=== PATIENT | female | born 1970 | race Caucasian/White ===

== ENCOUNTER → 2016-08-31 | Outpatient (CLI) | payer OTHER ==
[~2016-08-31] MED LIST: AZIT250T5 PO; DICY20TA57 PO; HYDR-3583 PO; LISI10TA2 PO; LVT.1T PO; METR500T PO; NCT14P TD; NCT21TD TD; NCT7P TD; PRD20T PO; RABE20TA PO
--- NOTE | 2016-09-02 17:37 | Diagnostic Imaging Report ---
Bilateral screening mammogram The current study was also evaluated with a Computer Aided Detection (CAD) system. Indication: Screening. No current complaints stated on the questionnaire. COMPARISON: 06/24/15. Findings: The breasts are composed of a scattered fibroglandular densities. There are occasional benign-appearing calcifications. Allowing for technique and positional differences, no suspicious change is seen. IMPRESSION: No significant change. ACR BI-RADS Category 2: Benign findings. Result letter will be mailed to the patient. Note: At least 10% of breast cancer is not imaged by mammography. Dictated by: Dictated on workstation # [id number]
== END ==
LOC: RAD 14:27
PROVIDERS: ATTEND Nurse Practitioner Community Health
DX: Z12.31 Encounter for screening mammogram for malignant neoplasm of breast (principal)
CPT/HCPCS: 77067

== ENCOUNTER 2016-09-19 12:58 | Emergency (ER) | payer SELFPAY ==
[~2016-09-19] VITALS: Ht 165.1 cm; Wt 93.0 kg
[2016-09-19 13:11] LABS: BILIRUBIN,URINE 2+ (NEGATIVE); KETONES,URINE NEGATIVE (NEGATIVE); LEUKOCYTE ESTERASE ,URINE 3+ (NEGATIVE); NITRITE,URINE POSITIVE (NEGATIVE); PH,URINE 5 (5-9); PROTEIN,URINE 2+ (NEGATIVE); UROBILINOGEN,URINE 4 MG/DL (NORMAL)
[2016-09-19 13:19] LABS: WBC,URINE 50-100 /HPF
[2016-09-19 13:46] LABS: BASOPHILS % (AUTO) 0 % (0-10); EOSINOPHILS # (AUTO) 0.2 10^3/uL (0.0-0.3); EOSINOPHILS % (AUTO) 1 % (0-10); LYMPHOCYTES # (AUTO) 3.5 X 10^3 (1.0-4.0); LYMPHOCYTES % (AUTO) 17 % (12-44); MEAN CORPUSCULAR HEMOGLOBIN 29 PG (25-34); MEAN CORPUSCULAR HGB CONC 33 G/DL (32-36); MEAN CORPUSCULAR VOLUME 86 FL (80-99); MEAN PLATELET VOLUME 10.8 FL (7.4-10.4); MONOCYTES # (AUTO) 1.9 X 10^3 (0.0-1.0); MONOCYTES % (AUTO) 9 % (0-12); NEUTROPHILS # (AUTO) 15.8 X 10^3 (1.8-7.8); NEUTROPHILS % (AUTO) 74 % (42-75); PLATELET COUNT 245 10^3/uL (130-400); RED BLOOD COUNT 5.11 10^6/uL (4.35-5.85); RED CELL DISTRIBUTION WIDTH 14.3 % (10.0-14.5); WHITE BLOOD COUNT 21.4 10^3/uL (4.3-11.0)
--- NOTE | 2016-09-19 13:48 | ED Abdominal Pain ---
General Chief Complaint: Back Problems Stated Complaint: R SIDE PAIN/POSS UTI Nursing Triage Note: c/o right flank pain. Onset Tuesday which started off as dysuria. Sepsis Screen: No Definite Risk Source of Information: Patient History of Present Illness Time Seen By Provider: 13:35 Initial Comments The patient is a 45-year-old white female who presents with complaints of dysuria and right sided abdominal pain. She reports that the dysuria and some suprapubic discomfort began on 09/16 and was relatively mild. She obtained some Azo Gantrisin. This has not seemed to help. She arose this morning she had dysuria but otherwise felt rather well. She then was suddenly stricken with a right flank pain which has gotten progressively worse. Timing/Duration: 2-3 Days Severity/Quality: Moderate, Burning, Sharp, Throbbing Location: RUQ, RLQ, Suprapubic Activities at Onset: None Allergies and Home Medications Allergies Coded Allergies: No Known Drug Allergies (Unverified , 09/22/10) Home Medications Azithromycin 250 Mg Tablet, 250 MG PO UD, #6 TAKE 2 TABLETS ON DAY ONE THEN TAKE 1 TABLET DAILY FOR FOUR MORE DAYS Prescribed by: CRISTELA PRICE on 02/25/15 1216 Cefdinir 300 Mg Capsule, 300 MG PO twice a day, #14 Prescribed by: TWAN ELLISON on 09/19/16 1525 Hydrocodone Bit/Acetaminophen 1 Tab Tab, 1-2 EA PO Q4H PRN, #30 (Reported) Levothyroxine Sodium 100 Mcg Tablet, 200 MCG PO DAILY, (Reported) Lisinopril 10 Mg Tablet, 10 MG PO DAILY, (Reported) Metronidazole 500 Mg Tab, 1 EACH PO Q8H for 9 Days, (Reported) Nicotine 7 Mg Patch, 7 MG TD, (Reported) Nicotine 14 Mg Patch, 14 MG TD, (Reported) Nicotine 21 Mg Patch, 21 MG TD, (Reported) Prednisone 20 Mg Tab, 40 MG PO DAILY for 3 Days Prescribed by: CRISTELA PRICE on 02/25/15 1216 Rabeprazole Sodium 20 Mg Tablet.dr, 20 MG PO DAILY, (Reported) Review of Systems Constitutional: see HPI EENTM: No Symptoms Reported Respiratory: No Symptoms Reported Cardiovascular: No Symptoms Reported Gastrointestinal: Abdominal Pain Genitourinary: See HPI, Burning Musculoskeletal: no symptoms reported Skin: no symptoms reported Psychiatric/Neurological: No Symptoms Reported Endocrine: No Symptoms Reported Hematologic/Lymphatic: No Symptoms Reported Past Rgrdqyh-Fxqfwi-Rarscc Hx Patient Social History Alcohol Use: Denies Use Recreational Drug Use: No Smoking Status: Current Everyday Smoker Recent Foreign Travel: No Contact w/Someone Who Travel: No Recent Infectious Disease Expo: No Surgeries HX Surgeries: Yes Surgeries: Gallbladder Respiratory Hx Respiratory Disorders: No Respiratory Disorders: Chronic Bronchitis Cardiovascular Hx Cardiac Disorders: Yes Cardiac Disorders: Hypertension Neurological Hx Neurological Disorders: Yes Reproductive System : No (IUD) Hx Reproductive Disorders: Yes (PT. 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 History: IUD Genitourinary Hx Genitourinary Disorders: Yes Gastrointestinal Hx Gastrointestinal Disorders: Yes Musculoskeletal Hx Musculoskeletal Disorders: No Endocrine Hx Endocrine Disorders: Yes Endocrine Disorders: Hypothyroidsim HEENT HX ENT Disorders: No Psychosocial Hx Psychiatric Problems: No Integumentary HX Skin/Integumentary Disorder: No Blood Transfusions Hx Blood Disorders: No Family Medical History Significant Family History: No Pertinent Family Hx Physical Exam Vital Signs VS - Last 72 Hours, by Label 09/19/16 13:23 Temp 97.6 Pulse 70 Resp 16 B/P (MAP) 117/90 Capillary Refill : Less Than 3 Seconds General Appearance: moderate distress HEENT: normal ENT inspection Neck: full range of motion Respiratory: chest non-tender, lungs clear, normal breath sounds, no respiratory distress, no accessory muscle use Cardiovascular: normal peripheral pulses, regular rate, rhythm, no edema, no gallop, no JVD, no murmur Gastrointestinal: tenderness Extremities: normal inspection Neurologic/Psychiatric: sporting goods sales manager II-XII nml as tested, no motor/sensory deficits, alert, normal mood/affect, oriented x 3 Skin: normal color, warm/dry Progress/Results/Core Measures Results/Orders Lab Results Laboratory Tests Test 09/19/16 13:05 09/19/16 13:38 Range/Units Urine Color LEAH H Urine Clarity SLIGHTLY CLOUDY Urine pH 5 5-9 Urine Specific [place] 1.005 L 1.016-1.022 Urine Protein 2+ H NEGATIVE Urine Glucose (UA) NEGATIVE NEGATIVE Urine Ketones NEGATIVE NEGATIVE Urine Nitrite POSITIVE H NEGATIVE Urine Bilirubin 2+ H NEGATIVE Urine Urobilinogen 4 H NORMAL MG/DL Urine Leukocyte Esterase 3+ H NEGATIVE Urine RBC (Auto) 5+ H NEGATIVE Urine RBC NONE /HPF Urine WBC 50-100 H /HPF Urine Crystals NONE /LPF Urine Bacteria MODERATE H /HPF Urine Casts NONE /LPF Urine Mucus SMALL H /LPF Urine Culture Indicated YES White Blood Count 21.4 H 4.3-11.0 10^3/uL Red Blood Count 5.11 4.35-5.85 10^6/uL Hemoglobin 14.6 11.5-16.0 G/DL Hematocrit 44 35-52 % Mean Corpuscular Volume 86 80-99 FL Mean Corpuscular Hemoglobin 29 25-34 PG Mean Corpuscular Hemoglobin Concent 33 32-36 G/DL Red Cell Distribution Width 14.3 10.0-14.5 % Platelet Count 245 130-400 10^3/uL Mean Platelet Volume 10.8 H 7.4-10.4 FL Neutrophils (%) (Auto) 74 42-75 % Lymphocytes (%) (Auto) 17 12-44 % Monocytes (%) (Auto) 9 0-12 % Eosinophils (%) (Auto) 1 0-10 % Basophils (%) (Auto) 0 0-10 % Neutrophils # (Auto) 15.8 H 1.8-7.8 X 10^3 Lymphocytes # (Auto) 3.5 1.0-4.0 X 10^3 Monocytes # (Auto) 1.9 H 0.0-1.0 X 10^3 Eosinophils # (Auto) 0.2 0.0-0.3 10^3/uL Basophils # (Auto) 0.0 0.0-0.1 10^3/uL Neutrophils % (Manual) 98 % Lymphocytes % (Manual) 17 % Monocytes % (Manual) 11 % Band Neutrophils 4 % Blood Morphology Comment NORMAL Sodium Level 137 135-145 MMOL/L Potassium Level 3.6 3.6-5.0 MMOL/L Chloride Level 103 98-107 MMOL/L Carbon Dioxide Level 24 21-32 MMOL/L Anion Gap 10 5-14 MMOL/L Blood Urea Nitrogen 8 7-18 MG/DL Creatinine 0.84 0.60-1.30 MG/DL Estimat Glomerular Filtration Rate > 60 BUN/Creatinine Ratio 10 Glucose Level 94 70-105 MG/DL Calcium Level 9.6 8.5-10.1 MG/DL Total Bilirubin 0.8 0.1-1.0 MG/DL Aspartate Amino Transf (AST/SGOT) 12 5-34 U/L Alanine Aminotransferase (ALT/SGPT) 16 0-55 U/L Alkaline Phosphatase 52 40-136 U/L Total Protein 8.4 H 6.4-8.2 GM/DL Albumin 4.2 3.2-4.5 GM/DL My Orders Orders - TWAN ELLISON MD Cbc With Automated Diff (09/19/16 13:04) Comprehensive Metabolic Panel (09/19/16 13:04) Ua Culture If Indicated (09/19/16 13:04) Urine Culture (09/19/16 13:05) Manual Differential (09/19/16 13:38) Ct Abdomen/Pelvis W (09/19/16 14:11) Iohexol Injection (Omnipaque 350 Mg/Ml 1 (09/19/16 14:30) Ns (Ivpb) (Sodium Chloride 0.9% Ivpb Bag (09/19/16 14:30) Ns Iv 1000 Ml (Sodium Chloride 0.9%) (09/19/16 15:15) Ceftriaxone Injection (Rocephin Injectio (09/19/16 15:15) Medications Given in ED Current Medications Medications Dose Ordered Sig/Larry Route Start Time Stop Time Status Last Admin Dose Admin Iohexol 100 ml ONCE ONCE IV 09/19/16 14:30 09/19/16 14:31 DC 09/19/16 14:30 100 ML Sodium Chloride 100 ml ONCE ONCE IV 09/19/16 14:30 09/19/16 14:31 DC 09/19/16 14:30 80 ML Vital Signs/I&O Vital Sign - Last 12Hours 09/19/16 13:23 Temp 97.6 Pulse 70 Resp 16 B/P (MAP) 117/90 Blood Pressure Mean: 99 Departure Communication Progress Notes CT scan shows inflammatory changes along the course of the right ureter. This is stated to be consistent with infection or possibly recently passed stone. Impression Impression: Primary Impression: urinary tract infection Disposition: 01 HOME, SELF-CARE Condition: Stable/Unchanged Departure-Patient Inst. Decision time for Depature: 15:23 Referrals: YAMILETH ROSS DO (PCP) Primary Care Physician KRISTI PRIDE (Family) Primary Care Physician Add. Discharge Instructions: All discharge instructions reviewed with patient and/or family. Voiced understanding. Plenty of liquids. Omnicef as directed Ibuprofen 600 mg every 6 hours for pain or fever. Take your first dose of Omnicef tomorrow afternoon. Scripts Cefdinir (Cefdinir) 300 Mg Capsule 300 MG PO twice a day, #14 CAP Prov: TWAN ELLISON MD 09/19/16 TWAN ELLISON MD Sep 19, 2016 13:48
[2016-09-19 14:03] LABS: ALANINE AMINOTRANSFERASE 16 U/L (0-55); ALBUMIN 4.2 GM/DL (3.2-4.5); ANION GAP 10 MMOL/L (5-14); ASPARTATE AMINO TRANSFERASE 12 U/L (5-34); BILIRUBIN,TOTAL 0.8 MG/DL (0.1-1.0); BLOOD UREA NITROGEN 8 MG/DL (7-18); BUN/CREATININE RATIO 10; CALCIUM 9.6 MG/DL (8.5-10.1); CARBON DIOXIDE 24 MMOL/L (21-32); CHLORIDE 103 MMOL/L (98-107); CREATININE SERUM 0.84 MG/DL (0.60-1.30); GFR ESTIMATED > 60; GLUCOSE 94 MG/DL (70-105); POTASSIUM 3.6 MMOL/L (3.6-5.0); SODIUM 137 MMOL/L (135-145); TOTAL PROTEIN 8.4 GM/DL (6.4-8.2)
[2016-09-19 14:05] LABS: BAND NEUTROPHILS 4 %; LYMPHOCYTES % (MANUAL) 17 %; NEUTROPHILS % (MANUAL) 98 %
[2016-09-19] MEDS ORDERED: IOHEXOL 350 MG/ML 100 ML (OMNIPAQUE 350) VIAL IV ONE (14:30)
[2016-09-19] MEDS ORDERED: NS 100 ML (IVPB) BAG IV ONE (14:30)
--- NOTE | 2016-09-19 15:00 | Diagnostic Imaging Report ---
PROCEDURE: CT abdomen and pelvis with contrast. TECHNIQUE: Multiple contiguous axial images were obtained through the abdomen and pelvis after administration of intravenous contrast. INDICATION: Right lower quadrant pain. Urinary tract infection. Elevated white blood cell count. FINDINGS: The lung bases demonstrate no focal infiltrate or evidence of a pleural or pericardial effusion. The liver demonstrates no evidence of a focal intrahepatic abnormality. The patient is status post cholecystectomy. There is no abnormal biliary dilatation. The spleen appears normal. The pancreas is unremarkable. There is no adrenal mass. The right kidney demonstrates some hazy stranding about the right renal pelvis. There also is enhancement and stranding demonstrated along the ureter with evidence of enhancement in the right-sided urothelium. The findings are most compatible with a urinary tract infection. The left ureter is unremarkable. The enhancement of the kidney itself appears appropriate. Small and large bowel are normal in caliber without evidence of obstruction. Uncomplicated sigmoid diverticulosis is demonstrated. There is a normal appearance of the appendix. There is no free fluid, free air, or abscess. An intrauterine device is present. The urinary bladder is nondistended. No pathologically enlarged abdominal or pelvic lymph nodes demonstrated. The aorta is normal in caliber. No acute or suspicious osseous abnormality demonstrated. IMPRESSION: 1. Abnormal mildly prominent right ureter with enhancement demonstrated of the urothelium of the ureter and right renal pelvis. There is also abnormal fat stranding along the course of the ureter. There is no current radiodense stone. The findings are most suggestive of urinary tract infection. Recently passed stone could not be excluded. The left kidney and ureter are unremarkable. 2. Uncomplicated diverticulosis. There is no bowel obstruction. The appendix is normal. 3. No free air, free fluid, or abscess. 4. Status post previous cholecystectomy. Dictated by: Dictated on workstation # [id number]
[2016-09-19] MEDS ORDERED: NS IV 1000 ML 1,000 ML IV SCH (15:15)
[2016-09-19] MEDS ORDERED: cefTRIAXone INJECTION 1,000 MG in NS (IVPB) 50 ML IV ONE (15:15)
[2016-09-19] MEDS ORDERED: CEFD300C3 PO (15:25)
[2016-09-19 16:15] VITALS: BP 116/86
--- OUTSIDE RECORDS SUMMARY | 2016-09-22 13:27 | XMS REPORT ---
Author Author KRISTI PRIDE [facility] eClinicalWorks Address Unknown Phone Unavailable Care Team Providers Care Dental Cream Maker Name Role Phone KRISTI PRIDE CP Unavailable Allergies No Known Allergies Problems Problem Type Condition Code Onset Dates Condition Status Problem Lump or mass in breast N63 Active Problem Family history of diabetes mellitus Z83.3 Active Problem Low back pain M54.5 Active Problem History of chest pain Z87.898 Active Problem History of IBS Z87.19 Active Problem Acquired hypothyroidism E03.9 Active Problem Dysthymic disorder F34.1 Active Problem Depressive disorder F32.9 Active Problem Counseling on substance use and abuse Z71.89 Active Problem Generalized anxiety disorder F41.1 Active Problem Eye exam abnormal R93.8 Active Problem Anxiety F41.9 Active Problem Constipation, unspecified K59.00 Active Problem Mood swings F39 Active Problem Depression, unspecified depression type F32.9 Active Problem IUD (intrauterine device) in place Z97.5 Active Problem Acne, unspecified L70.9 Active Problem History of thyroid cancer Z85.850 Active Medications No Known Medications Results No Known Results Summary Purpose eClinicalWorks Submission
--- OUTSIDE RECORDS SUMMARY | 2016-09-22 13:27 | XMS REPORT ---
Author Author KRISTI PRIDE [facility] eClinicalWorks Address Unknown Phone Unavailable Care Team Providers Care Automatic Mounter Name Role Phone KRISTI PRIDE CP Unavailable Allergies, Adverse Reactions, Alerts Substance Reaction Event Type N.K.D.A. Info Not Available Non Drug Allergy Problems Problem Type Condition Code Onset Dates Condition Status Assessment Encounter for removal and reinsertion of intrauterine contraceptive device Z30.433 Active Assessment Presbyopia H52.4 Active Problem Wheezing 786.07 Active Assessment Acquired hypothyroidism E03.9 Active Problem Dysthymic disorder 300.4 Active Problem Screening examination for venereal disease V74.5 Active Problem Allergic rhinitis due to pollen 477.0 Active Problem Generalized anxiety disorder 300.02 Active Problem Acute upper respiratory infections of unspecified site 465.9 Active Problem Counseling on substance use and abuse V65.42 Active Problem Surveillance of previously prescribed intrauterine contraceptive device V25.42 Active Problem Routine gynecological examination V72.31 Active Problem Special screening examination, human papillomavirus [HPV] V73.81 Active Problem Acute sinusitis, unspecified 461.9 Active Problem Screening for malignant neoplasm of the cervix V76.2 Active Problem Dysmenorrhea 625.3 Active Problem Other specified menopausal and postmenopausal disorder 627.8 Active Problem Other acne 706.1 Active Problem Unspecified breast screening V76.10 Active Problem Family history of diabetes mellitus V18.0 Active Problem Unspecified infective otitis externa 380.10 Active Problem Lump or mass in breast 611.72 Active Problem Lumbago 724.2 Active Problem Depressive disorder, not elsewhere classified 311 Active Problem Other malaise and fatigue 780.79 Active Problem Anxiety state, unspecified 300.00 Active Problem Premenopausal menorrhagia 627.0 Active Medications Medication Code System Code Instructions Start Date End Date Status Dosage Albuterol Sulfate [facility] [address]-82 90 mcg/actuation September 05, 2012 2 puffs by Inhalation route every 4-6 hours as needed PRN cough or wheezing Levothyroxine Sodium [facility] 87437905303 125 MCG TAKE ONE TABLET BY MOUTH DAILY Procedures Procedure Coding System Code Date Office Visit, Est Pt., Level 3 CPT-4 20306 Apr 09, 2015 Vital Signs Date/Time: Apr 09, 2015 Temperature 98.7 F Weight 203.8 lbs Height 65 in BMI 33.91 Index Blood Pressure Diastolic 90 mmHg Blood Pressure Systolic 140 mmHg Cardiac Monitoring Heart Rate 80 bpm Results No Known Results Summary Purpose eClinicalWorks Submission
--- OUTSIDE RECORDS SUMMARY | 2016-09-22 13:27 | XMS REPORT ---
Author Author KRISTI PRIDE [facility] eClinicalWorks Address Unknown Phone Unavailable Care Team Providers Care Back Tender Paper Machine Name Role Phone KRISTI PRIDE CP Unavailable Allergies, Adverse Reactions, Alerts Substance Reaction Event Type N.K.D.A. Info Not Available Non Drug Allergy Problems Problem Type Condition Code Onset Dates Condition Status Problem Lump or mass in breast N63 Active Problem Family history of diabetes mellitus Z83.3 Active Problem Low back pain M54.5 Active Problem History of chest pain Z87.898 Active Assessment Insect bite, initial encounter W57.XXXA Active Problem History of IBS Z87.19 Active Assessment Acquired hypothyroidism E03.9 Active Problem Acquired hypothyroidism E03.9 Active Problem Dysthymic disorder F34.1 Active Problem Depressive disorder F32.9 Active Problem Counseling on substance use and abuse Z71.89 Active Problem Generalized anxiety disorder F41.1 Active Problem Eye exam abnormal R93.8 Active Problem Anxiety F41.9 Active Assessment Bronchitis J40 Active Assessment Sebaceous cyst L72.3 Active Problem Constipation, unspecified K59.00 Active Problem Mood swings F39 Active Problem Depression, unspecified depression type F32.9 Active Problem IUD (intrauterine device) in place Z97.5 Active Problem Acne, unspecified L70.9 Active Problem History of thyroid cancer Z85.850 Active Medications Medication Code System Code Instructions Start Date End Date Status Dosage Carvedilol [facility] 21802253614 6.25 MG TAKE ONE TABLET BY MOUTH TWICE DAILY Levothyroxine Sodium [facility] 65636305219 125 MCG TAKE ONE TABLET BY MOUTH DAILY Albuterol Sulfate [facility] [address]-14 90 mcg/actuation September 05, 2012 2 puffs by Inhalation route every 4-6 hours as needed PRN cough or wheezing Levaquin [facility] [address]-39 500 MG Orally Once a day Jan 12, 2016 Jan 22, 2016 1 tablet Loratadine [facility] [address]-21 10 mg Orally Once a day for allergies Jan 12, 2016 Feb 11, 2016 1 tablet Procedures Procedure Coding System Code Date VENIPUNCT, ROUTINE* CPT-4 36527 Jan 12, 2016 Office Visit, Est Pt., Level 3 CPT-4 85437 Jan 12, 2016 ASSAY THYROID STIM HORMONE CPT-4 07687 Jan 12, 2016 Vital Signs Date/Time: Jan 12, 2016 Cardiac Monitoring Heart Rate 76 bpm Weight 199.0 lbs Height 65 in BMI 33.11 Index Blood Pressure Diastolic 96 mmHg Blood Pressure Systolic 156 mmHg Results Name Result Date Reference Range Unit Abnormality Flag ROUTINE VENIPUNCTURE TSH ----TSH 1.090 [id number] 0.450-4.500 uIU/mL Summary Purpose eClinicalWorks Submission
--- OUTSIDE RECORDS SUMMARY | 2016-09-22 13:27 | XMS REPORT ---
Author Author RON MURILLO [facility] eClinicalWorks Address Unknown Phone Unavailable Care Team Providers Care Hide Stretcher Hand Name Role Phone RON MURILLO Unavailable Allergies No Known Allergies Problems Problem Type Condition Code Onset Dates Condition Status Assessment Encounter for counseling regarding contraception Z30.9 Active Problem Generalized anxiety disorder F41.1 Active Problem Dysthymic disorder F34.1 Active Problem Counseling on substance use and abuse Z71.89 Active Problem Low back pain M54.5 Active Problem Lump or mass in breast N63 Active Problem Depressive disorder F32.9 Active Problem Family history of diabetes mellitus Z83.3 Active Medications No Known Medications Procedures Procedure Coding System Code Date VENIPUNCT, ROUTINE* CPT-4 99675 Apr 18, 2015 CHORIONIC GONADOTROPIN TEST CPT-4 93959 Apr 18, 2015 Results Name Result Date Reference Range Unit Abnormality Flag ROUTINE VENIPUNCTURE Summary Purpose eClinicalWorks Submission
--- OUTSIDE RECORDS SUMMARY | 2016-09-22 13:27 | XMS REPORT ---
Author Author JERRICA BAH [facility] eClinicalWorks Address Unknown Phone Unavailable Care Team Providers Care Clock Smith Name Role Phone JERRICA BAH CP Unavailable Allergies, Adverse Reactions, Alerts Substance [...] R93.8 Active Problem Anxiety F41.9 Active Assessment IUD (intrauterine device) in place Z97.5 Active Assessment Abscess L02.91 Active Problem Constipation, unspecified K59.00 Active Problem Mood swings F39 Active Problem Depression, unspecified depression type F32.9 Active Problem IUD (intrauterine device) in place Z97.5 Active Problem Acne, unspecified L70.9 Active Problem History of thyroid cancer Z85.850 Active Medications Medication Code System Code Instructions Start Date End Date Status Dosage Flonase [facility] [address]-06 50 mcg/actuation 2 spray(s) intranasally 2 times a day October 19, 2011 1 sprays by Nasal route 2 times per dayin each nostril Albuterol Sulfate [facility] [address]-88 90 mcg/actuation September 05, 2012 2 puffs by Inhalation route every 4-6 hours as needed PRN cough or wheezing Carvedilol [facility] 67370746881 6.25 MG TAKE ONE TABLET BY MOUTH TWICE DAILY Bactrim DS [facility] [address]-54 800-160 MG Orally Twice a day October 09, 2015 October 19, 2015 1 tablet Levothyroxine Sodium [facility] 73980021080 125 MCG TAKE ONE TABLET BY MOUTH DAILY Procedures Procedure Coding System Code Date Office Visit, Est Pt., Level 3 CPT-4 34708 October 09, 2015 DRAINAGE OF SKIN ABSCESS CPT-4 16347 October 09, 2015 CULTURE, BACTERIA, OTHER CPT-4 74295 October 09, 2015 Vital Signs Date/Time: October 09, 2015 Cardiac Monitoring Heart Rate 78 bpm Weight 191.0 lbs Height 65 in Blood Pressure Diastolic 88 mmHg Blood Pressure Systolic 146 mmHg Results No Known Results Summary Purpose eClinicalWorks Submission
--- OUTSIDE RECORDS SUMMARY | 2016-09-22 13:27 | XMS REPORT ---
Author Author RON MURILLO [employer]Clinical[employer] Address Unknown Phone Unavailable Care Team Providers Care Deli Bakery Clerk Name Role Phone RON MURILLO Unavailable Allergies, Adverse Reactions, Alerts Substance Reaction Event Type N.K.D.A. Info Not Available Non Drug Allergy Problems Problem Type Condition Code Onset Dates Condition Status Problem Mood swings F39 Active Problem History of thyroid cancer Z85.850 Active Problem IUD (intrauterine device) in place Z97.5 Active Problem Generalized anxiety disorder F41.1 Active Assessment Depression, unspecified depression type F32.9 Active Problem Dysthymic disorder F34.1 Active Assessment Anxiety F41.9 Active Problem Counseling on substance use and abuse Z71.89 Active Problem Low back pain M54.5 Active Problem Lump or mass in breast N63 Active Problem Depressive disorder F32.9 Active Problem Family history of diabetes mellitus Z83.3 Active Assessment Mood swings F39 Active Assessment IUD (intrauterine device) in place Z97.5 Active Assessment Acne, unspecified L70.9 Active Assessment Constipation, unspecified K59.00 Active Problem Anxiety F41.9 Active Problem Depression, unspecified depression type F32.9 Active Assessment History of thyroid cancer Z85.850 Active Problem Acne, unspecified L70.9 Active Assessment Encounter for counseling regarding contraception Z30.9 Active Problem Constipation, unspecified K59.00 Active Medications Medication Code System Code Instructions Start Date End Date Status Dosage Carvedilol [facility] [address]-96 not defined Albuterol Sulfate [facility] [address]-01 90 mcg/actuation September 05, 2012 2 puffs by Inhalation route every 4-6 hours as needed PRN cough or wheezing Levothyroxine Sodium [facility] 24714673381 125 MCG TAKE ONE TABLET BY MOUTH DAILY Procedures Procedure Coding System Code Date URINE TEST CPT-4 32921 Apr 17, 2015 Office Visit, Est Pt., Level 3 CPT-4 19896 Apr 17, 2015 Vital Signs Date/Time: Apr 17, 2015 Temperature 97.9 F Weight 200.5 lbs Height 65 in BMI 33.36 Index Blood Pressure Diastolic 78 mmHg Blood Pressure Systolic 138 mmHg Cardiac Monitoring Heart Rate 82 bpm Results Name Result Date Reference Range Unit Abnormality Flag TEST, URINE (IN HOUSE) Summary Purpose eClinicalWorks Submission
--- OUTSIDE RECORDS SUMMARY | 2016-09-22 13:28 | XMS REPORT ---
Author IGLESIA Munoz [facility] eClinicalWorks Address Unknown Phone Unavailable Care Team Providers Care Fundraising Coordinator Name Role Phone IGLESIA IBARRA CP Unavailable Allergies, Adverse Reactions, Alerts Substance [...] R93.8 Active Problem Anxiety F41.9 Active Assessment Ganglion cyst of finger of left hand M67.442 Active Problem Constipation, unspecified K59.00 Active Problem Mood swings F39 Active Problem Depression, unspecified depression type F32.9 Active Problem IUD (intrauterine device) in place Z97.5 Active Problem Acne, unspecified L70.9 Active Problem History of thyroid cancer Z85.850 Active Medications Medication Code System Code Instructions Start Date End Date Status Dosage Flonase [facility] [address]-36 50 mcg/actuation 2 spray(s) intranasally 2 times a day October 19, 2011 1 sprays by Nasal route 2 times per dayin each nostril Albuterol Sulfate [facility] [address]-31 90 mcg/actuation September 05, 2012 2 puffs by Inhalation route every 4-6 hours as needed PRN cough or wheezing Carvedilol ND 02594596889 6.25 MG TAKE ONE TABLET BY MOUTH TWICE DAILY Levothyroxine Sodium ND 44652051788 125 MCG TAKE ONE TABLET BY MOUTH DAILY Procedures Procedure Coding System Code Date Office Visit, Est Pt., Level 2 CPT-4 75719 Oct 21, 2015 CRYOTHERAPY OF SKIN CPT-4 78967 Oct 21, 2015 Vital Signs Date/Time: Oct 21, 2015 Cardiac Monitoring Heart Rate 82 bpm Weight 192 lbs Height 65 in BMI 31.95 Index Blood Pressure Diastolic 86 mmHg Blood Pressure Systolic 130 mmHg Results No Known Results Summary Purpose eClinicalWorks Submission
== END 2016-09-19 16:15 | disposition home or self-care (01) ==
LOC: EDUNIT# 12:58 → ER 13:00
DX: N39.0 Urinary tract infection, site not specified (principal); E03.9 Hypothyroidism, unspecified; I10 Essential (primary) hypertension; J42 Unspecified chronic bronchitis; F17.210 Nicotine dependence, cigarettes, uncomplicated; Z90.49 Acquired absence of other specified parts of digestive tract; Z97.5 Presence of (intrauterine) contraceptive device
CPT/HCPCS: 36415; 74177; 80053; 81000; 85007; 85027; 87088; 87186; 96361; 96365; 99282